=== PATIENT | male | born 1950 | race Hispanic/Latino ===

== ENCOUNTER 2020-05-17 16:03 | Observation (INO) | payer OTHER ==
[~2020-05-17] VITALS: Ht 160 cm; Wt 79.4 kg
[2020-05-17] MEDS ORDERED: ASPIRIN 325 MG TABLET ONE (16:23)
[2020-05-17 16:53] LABS: APPEARANCE,URINE Clear (CLEAR); BASOPHILS % (AUTO) 0.3 % (0.0-5.0); BILIRUBIN,URINE Negative (NEGATIVE); COLOR,URINE Yellow (YELLOW); EOSINOPHILS % (AUTO) 0.8 % (0.0-8.0); GLUCOSE, URINE (UA) 500 mg/dL (NEGATIVE); HEMATOCRIT 42.1 % (42-54); KETONES,URINE Negative (NEGATIVE); LEUKOCYTE ESTERASE ,URINE Negative (NEGATIVE); LYMPHOCYTES % (AUTO) 17.1 % (21.0-51.0); MEAN CORPUSCULAR HEMOGLOBIN 30.4 pg (27.0-33.0); MEAN CORPUSCULAR VOLUME 89.4 fL (79-99); MONOCYTES % (AUTO) 10.3 % (3.0-13.0); NITRATE,URINE Negative (NEGATIVE); OCCULT BLOOD,URINE Negative (NEGATIVE); PH,URINE 5.5 (5.0-8.0); PLATELET COUNT (AUTO) 189 K/uL (130-400); PROTEIN,URINE Negative (NEGATIVE); RED BLOOD CELL COUNT(AUTO) 4.71 MIL/uL (4.50-6.20); RED CELL DISTRIBUTION WIDTH 12.6 % (11.0-15.5); UROBILINOGEN,URINE 0.2 mg/dL (0.2-1.0); WHITE BLOOD COUNT (AUTO) 9.4 K/uL (4.8-10.8)
[2020-05-17 17:06] LABS: INR 1.53 (0.85-1.15)
[2020-05-17 17:08] LABS: PARTIAL THROMBOPLASTIN TIME 39.2 SEC (26.3-35.5)
[2020-05-17 17:13] LABS: BACTERIA,URINE None Seen /HPF (None Seen); RBC,URINE 0-1 /HPF (0-1); SQUAMOUS EPITHELIAL CELL,UR None Seen /HPF (0-2); WBC,URINE 0-1 /HPF (0-1)
[2020-05-17 17:46] LABS: CREATININE 1.1 mg/dL (0.5-1.5); POTASSIUM 3.7 mmol/L (3.5-5.1)
[2020-05-17 17:50] LABS: ALBUMIN 3.8 g/dL (3.5-5.0); BILIRUBIN,TOTAL 0.5 mg/dL (0.2-1.0); TOTAL PROTEIN, SERUM 7.8 g/dL (6.0-8.3)
[2020-05-17] MEDS ORDERED: MORPHINE SULFATE 2 MG/ML 1ML SYG IV PRN (19:45)
[2020-05-17] MEDS ORDERED: NITROGLYCERIN 1GM/1 INCH PACKET TD SCH (19:45)
[2020-05-17] MEDS ORDERED: ACETAMINOPHEN 325 MG TAB PO PRN ×2 (19:45)
[2020-05-17 20:25] LABS: HEMOGLOBIN A1C 6.8 % (4.0-6.0)
[2020-05-17] MEDS ORDERED: PANTOPRAZOLE SODIUM 40 MG TABLET.DR PO SCH (21:00)
[2020-05-17] MEDS ORDERED: ATORVASTATIN CALCIUM 20 MG TABLET PO SCH (21:00)
[2020-05-17] MEDS ORDERED: COMPOUND PO MISCELLANEOUS 1 EACH MISC MISC PRN (21:00)
[2020-05-17 21:39] LABS: % IRON SATURATION 20.9 % (30-44)
[2020-05-17 21:46] LABS: CREATINE KINASE, TOTAL 136 U/L (21-232); MYOGLOBIN 83 ng/mL (10-92); TROPONIN I < 0.04 ng/mL (0.00-0.06)
[2020-05-17] MEDS ORDERED: LIDO 2% VISC 30ML+MAG/AL/SIMETH 30ML+DICYCLOMINE 20MG 10ML PO ONE ×3 (22:00)
[2020-05-17] MEDS ORDERED: LIDOCAINE HCL 2% VISCOUS 30 ML, MAG HYDROX/AL HYDROX/SIMETH 30 ML, BELLADONNA-PHENOBARB... PO ONE ×3 (22:00)
[2020-05-17] MEDS ORDERED: ATORVASTATIN CALCIUM 40 MG TABLET ONE (23:59)
[2020-05-18 07:10] LABS: CHOLESTEROL 86 mg/dL (<200); CREATINE KINASE, TOTAL 110 U/L (21-232); HDL CHOLESTEROL 42 mg/dL (29-71); LDL DIRECT 35 mg/dL (0-99); MYOGLOBIN 101 ng/mL (10-92); TRIGLYCERIDES 84 mg/dL (30-200); TROPONIN I < 0.04 ng/mL (0.00-0.06)
[2020-05-18] MEDS ORDERED: METOCLOPRAMIDE 10 MG/2 ML VIAL IVP SCH (07:30)
[2020-05-18] MEDS ORDERED: METOPROLOL TARTRATE 50 MG TAB ONE (08:12)
[2020-05-18] MEDS ORDERED: AMLODIPINE BESYLATE 5 MG TAB ONE (08:12)
[2020-05-18] MEDS ORDERED: ASPIRIN 325 MG TABLET ONE (08:12)
[2020-05-18] MEDS ORDERED: METOCLOPRAMIDE 10 MG/2 ML VIAL ONE (08:12)
[2020-05-18] MEDS ORDERED: LOSARTAN 50 MG TABLET ONE (08:13)
[2020-05-18] MEDS ORDERED: ENOXAPARIN SODIUM 40 MG/0.4 ML SYRINGE SQ ONE (08:13)
[2020-05-18] MEDS ORDERED: PANTOPRAZOLE SODIUM 40 MG TABLET.DR ONE ×2 (08:13)
[2020-05-18] MEDS ORDERED: NITROGLYCERIN 1GM/1 INCH PACKET TD ONE ×2 (08:13)
[2020-05-18] MEDS ORDERED: RIVAROXABAN 20 MG TABLET PO SCH (09:00)
[2020-05-18] MEDS ORDERED: RIVAROXABAN 2.5 MG TABLET PO SCH (09:00)
[2020-05-18] MEDS ORDERED: LOSARTAN 50 MG TABLET PO SCH (09:00)
[2020-05-18] MEDS ORDERED: METOPROLOL SUCCINATE 50 MG TAB.SR.24H PO SCH (09:00)
[2020-05-18] MEDS ORDERED: AMLODIPINE BESYLATE 5 MG TAB PO SCH (09:00)
[2020-05-18] MEDS ORDERED: ENOXAPARIN SODIUM 40 MG/0.4 ML SYRINGE SQ SCH (09:00)
[2020-05-18] MEDS ORDERED: ASPIRIN 325 MG TABLET PO SCH (09:00)
[2020-05-18 11:52] LABS: BASOPHILS % (AUTO) 0.3 % (0.0-5.0); EOSINOPHILS % (AUTO) 0.8 % (0.0-8.0); HEMATOCRIT 41.3 % (42-54); LYMPHOCYTES % (AUTO) 17.7 % (21.0-51.0); MEAN CORPUSCULAR HEMOGLOBIN 30.4 pg (27.0-33.0); MEAN CORPUSCULAR HGB CONC 33.9 g/dL (32.0-36.0); MEAN CORPUSCULAR VOLUME 89.6 fL (79-99); MONOCYTES % (AUTO) 8.4 % (3.0-13.0); NEUTROPHILS % (AUTO) 72.5 % (40.0-77.0); PLATELET COUNT (AUTO) 185 K/uL (130-400); RED BLOOD CELL COUNT(AUTO) 4.61 MIL/uL (4.50-6.20); RED CELL DISTRIBUTION WIDTH 12.5 % (11.0-15.5)
[2020-05-18 12:02] LABS: CREATININE 1.1 mg/dL (0.5-1.5); POTASSIUM 4.2 mmol/L (3.5-5.1)
[2020-05-18 12:14] LABS: ALBUMIN 3.3 g/dL (3.5-5.0); BILIRUBIN,TOTAL 0.8 mg/dL (0.2-1.0); TOTAL PROTEIN, SERUM 6.9 g/dL (6.0-8.3)
[2020-05-18 12:17] LABS: CREATINE KINASE, TOTAL 118 U/L (21-232); MYOGLOBIN 98 ng/mL (10-92); TROPONIN I < 0.04 ng/mL (0.00-0.06)
[2020-05-18] MEDS ORDERED: PANT40TA PO (15:44)
[2020-05-18] MEDS ORDERED: AMLO5TAB4 PO (15:44)
[2020-05-18] MEDS ORDERED: RIVA20TA PO (15:44)
[2020-05-18] MEDS ORDERED: LOSA50TA2 PO (15:44)
[2020-05-18] MEDS ORDERED: FERR324T4 PO (15:44)
[2020-05-18] MEDS ORDERED: ATOR20TA65 PO (15:44)
[2020-05-18] MEDS ORDERED: METO50TA9 PO (15:44)
[2020-05-18] MEDS ORDERED: ASPI-1012 PO (15:44)
[2020-05-19] MEDS ORDERED: FERROUS SULFATE 325 MG TABLET.DR PO SCH (09:00)
== END 2020-05-18 18:45 | disposition home or self-care (01) ==
LOC: EDH 16:03 → EDHIP 19:42
PROVIDERS: ADMIT Internal Medicine; ATTEND Internal Medicine
DX: I49.3 Ventricular premature depolarization (principal); R07.89 Other chest pain; R94.31 Abnormal electrocardiogram [ECG] [EKG]; I10 Essential (primary) hypertension; E78.5 Hyperlipidemia, unspecified; E11.9 Type 2 diabetes mellitus without complications; E78.00 Pure hypercholesterolemia, unspecified; K21.9 Gastro-esophageal reflux disease without esophagitis; Z95.0 Presence of cardiac pacemaker; Z79.01 Long term (current) use of anticoagulants; Z79.899 Other long term (current) drug therapy
CPT/HCPCS: 36415 ×2; 71045; 80053 ×2; 80061; 81001; 82550 ×4; 83036; 83540; 83550; 83874 ×3; 84484 ×4; 85025 ×2; 85610; 85730; 93005 ×4; 99285; G0378 ×23; J1650; J2765

== ENCOUNTER 2020-06-21 00:47 | Emergency (ER) | payer OTHER, MEDICARE ==
[~2020-06-21 00:47] MED LIST: AMLO5TAB4 PO; ASPI-1012 PO; ATOR20TA65 PO; FERR324T4 PO; LOSA50TA2 PO; METO50TA9 PO; PANT40TA PO; RIVA20TA PO
[2020-06-21] MEDS ORDERED: LORAZEPAM 2 MG/ML 1 ML VIAL ONE (01:13)
[2020-06-21 01:26] LABS: CREATININE 1.1 mg/dL (0.5-1.5); POTASSIUM 3.6 mmol/L (3.5-5.1)
[2020-06-21 01:29] LABS: ALBUMIN 3.8 g/dL (3.5-5.0); BILIRUBIN,TOTAL 0.5 mg/dL (0.2-1.0); TOTAL PROTEIN, SERUM 7.6 g/dL (6.0-8.3)
[2020-06-21 01:31] LABS: BASOPHILS % (AUTO) 0.3 % (0.0-5.0); EOSINOPHILS % (AUTO) 2.2 % (0.0-8.0); HEMATOCRIT 41.1 % (42-54); LYMPHOCYTES % (AUTO) 32.6 % (21.0-51.0); MEAN CORPUSCULAR HEMOGLOBIN 30.4 pg (27.0-33.0); MEAN CORPUSCULAR HGB CONC 34.3 g/dL (32.0-36.0); MEAN CORPUSCULAR VOLUME 88.6 fL (79-99); MONOCYTES % (AUTO) 10.3 % (3.0-13.0); NEUTROPHILS % (AUTO) 54.2 % (40.0-77.0); PLATELET COUNT (AUTO) 179 K/uL (130-400); RED BLOOD CELL COUNT(AUTO) 4.64 MIL/uL (4.50-6.20); RED CELL DISTRIBUTION WIDTH 12.6 % (11.0-15.5); WHITE BLOOD COUNT (AUTO) 10.2 K/uL (4.8-10.8)
[2020-06-21 01:38] LABS: INR 1.1 (0.85-1.15); PROTHROMBIN TIME 11.9 SEC (9.6-11.6)
[2020-06-21 01:39] LABS: PARTIAL THROMBOPLASTIN TIME 30.5 SEC (26.3-35.5)
== END 2020-06-21 03:29 | disposition home or self-care (01) ==
LOC: EDH 00:47
DX: F41.9 Anxiety disorder, unspecified (principal); I10 Essential (primary) hypertension; I16.9 Hypertensive crisis, unspecified; Z87.891 Personal history of nicotine dependence; Z79.899 Other long term (current) drug therapy
CPT/HCPCS: 36415; 80053; 83690; 84484; 85025; 85610; 85730; 93005; 96374; 99285; J2060

== ENCOUNTER → 2021-12-20 | Outpatient (CLI) | payer OTHER | END | disposition home or self-care (01) | LOC: SHCH 08:49 | PROVIDERS: ATTEND Internal Medicine Cardiovascular Disease | DX: I65.23 Occlusion and stenosis of bilateral carotid arteries (principal); Z95.828 Presence of other vascular implants and grafts | CPT/HCPCS: 93880 ==

== ENCOUNTER → 2024-01-23 | Outpatient (CLI) | payer OTHER ==
[~2024-01-23] MED LIST changes: +LOSA-418 PO; -LOSA50TA2 PO
== END | disposition home or self-care (01) ==
LOC: SHCH 07:45
PROVIDERS: ATTEND Internal Medicine Cardiovascular Disease
DX: I65.23 Occlusion and stenosis of bilateral carotid arteries (principal); I48.0 Paroxysmal atrial fibrillation
CPT/HCPCS: 93880